=== PATIENT | female | born 1990 | race Native Hawaiian/Other Pacific Islander ===

== ENCOUNTER 2020-10-11 14:34 | Outpatient (CLI) | payer OTHER ==
[~2020-10-11] VITALS: Ht 157.5 cm; Wt 84.4 kg
== END 2020-10-11 23:00 | disposition home or self-care (01) ==
LOC: INF 14:34
PROVIDERS: ATTEND Nurse Practitioner Family
DX: Z23 Encounter for immunization (principal); U07.1 COVID-19
CPT/HCPCS: 96365; M0244